=== PATIENT | female | born 1995 | race Caucasian/White ===

== ENCOUNTER 2017-04-19 01:42 | Emergency (ER) | payer OTHER ==
--- NOTE | ~2017-04-19 | CT71 ---
[facility] A Service of [facility] RADIOLOGY TEXT RESULTS PATIENT: MARICEL MILLER LOCATION: SED : [birth year] UNIT #: [id number] AGE: [address]: Shawn Lee MD SEX: F ORDER DR: [id number] [place] [id number] MR#: [id number] Acc #: [id number] NAME: MARICEL MILLER : 1995 SEX: F STUDY DATE/TIME: 04/19/2017 03:27 UNIT: SED ROOM: STUDY DESCRIPTION: CT Head Wo Contrast Attending Physician: Shawn Lee M.D. Ordering Physician: Shawn Lee M.D. Primary Care Physician: No Primary Care Physician MEDICAL IMAGING REPORT This report is preliminary unless electronic signature is present. EXAM Head CT 04/19 at 0327. COMPARISON 10/30/16. INDICATIONS Woke up an hour ago with weakness and shakiness and tingling in the left side of the face. TECHNIQUE Axial noncontrast images were obtained from the skull base to the vertex. This CT exam was performed with one or more of the following radiation dose reduction techniques: automatic exposure control, adjustment of mA and/or kV according to patient size, and iterative reconstruction. FINDINGS Ventricular size and configuration are normal. There is no evidence of acute infarct or hemorrhage. There are no extraaxial fluid collections. No mass lesion or mass effect is seen. There are no skull fractures. IMPRESSION Normal noncontrast head CT. Dictated by... Trevor Vu Jr., M.D. THIS IS AN ELECTRONICALLY VERIFIED REPORT Trevor Vu Jr., M.D. at 04/19/2017 9:22 PM RLK/joel [facility] A Service [facility] RADIOLOGY TEXT RESULTS PATIENT: MARICEL MILLER LOCATION: SED : [birth year] UNIT #: [id number] AGE: [address]: Shawn Lee MD SEX: F ORDER DR: TD: 04/19/2017 12:26 JOB #: [id number] MEDICAL IMAGING REPORT Page 1 of 1
[~2017-04-19 01:42] MED LIST: CELEXA20 MG PO
[2017-04-19] MEDS ORDERED: PROPRANOLOL HCL10 MG PO (02:05)
[2017-04-19] MEDS ORDERED: MOTION RELIEF25 MG PO (02:05)
[2017-04-19 03:05] LABS: BASOPHIL# 0.1 X10e3 (0-0.3); BASOPHIL% 0.6 % (0-2.5); EOSINOPHIL# 0.2 X10e3 (0-0.7); EOSINOPHIL% 2.2 % (0.0-7.0); HEMATOCRIT 38.5 % (35.0-45.0); HEMOGLOBIN 12.8 gm/dL (12.0-16.0); LYMPHOCYTE# 3.5 X10e3 (1.0-3.5); LYMPHOCYTE% 38.7 % (17.0-45.0); MEAN CELL VOLUME 84.1 FL (83-96); MEAN CORPUSCULAR HEMOGLOBIN 27.9 PG (28-34); MEAN CORPUSCULAR HGB CONC 33.1 g/dL (30-36); MEAN PLATELET VOLUME 7.4 FL (6.5-11.5); MONOCYTE# 0.5 X10e3 (0-1.0); MONOCYTE% 5.7 % (3.0-12.0); NEUTROPHIL# 4.8 X10e3 (1.5-7.1); NEUTROPHIL% 52.8 % (40-75); PLATELET COUNT 294 X10e3 (140-420); RED BLOOD COUNT 4.58 X10e (3.90-5.30); RED CELL DISTRIBUTION WIDTH 14.3 % (11.0-15.5)
[2017-04-19 03:06] LABS: DIFF IND NO
[2017-04-19 03:18] LABS: ALBUMIN SERUM 4.2 g/dL (3.5-5.0); ALKALINE PHOSPHATASE 62 U/L (32-92); ALT (SGPT) 17 U/L (10-40); AST (SGOT) 17 U/L (10-42); BILIRUBIN,TOTAL 0.4 mg/dL (0.2-2.0); BLOOD UREA NITROGEN 9 mg/dL (9-23); CALCIUM SERUM 9.2 mg/dL (8.4-10.2); CARBON DIOXIDE 26 mmol/L (22-31); CHLORIDE 100 mmol/L (100-111); CREATININE SERUM 0.6 mg/dL (0.6-1.4); GLOM FILT RATE Estimated 130.3 mL/min (>60); GLUCOSE FASTING 94 mg/dL (70-110); POTASSIUM 3.3 mmol/L (3.5-5.1); PROTEIN TOTAL SERUM 8.1 g/dL (6.0-8.3); SODIUM 135 mmol/L (135-145)
[2017-04-19 03:20] LABS: BILIRUBIN, DIRECT <0.1 mg/dL (0.0-0.2); BILIRUBIN,INDIRECT 0.3 mg/dL (0.0-0.9)
== END 2017-04-19 04:05 | disposition home or self-care (01) ==
LOC: SED 01:42
PROVIDERS: Emergency Medicine
DX: R20.2 Paresthesia of skin (principal); E87.6 Hypokalemia; F41.9 Anxiety disorder, unspecified; F17.200 Nicotine dependence, unspecified, uncomplicated
CPT/HCPCS: 70450; 80048; 80076; 84703; 85025; 96372; 99284

== ENCOUNTER 2017-04-25 19:54 | Emergency (ER) | payer OTHER ==
[~2017-04-25 19:54] MED LIST changes: +MOTION RELIEF25 MG PO; +PROPRANOLOL HCL10 MG PO
== END 2017-04-25 20:59 | disposition home or self-care (01) ==
LOC: SED 19:54
DX: L60.0 Ingrowing nail (principal); F17.210 Nicotine dependence, cigarettes, uncomplicated; Z79.899 Other long term (current) drug therapy; Z88.1 Allergy status to other antibiotic agents; Z88.8 Allergy status to other drugs, medicaments and biological substances
CPT/HCPCS: 99283

== ENCOUNTER 2017-04-27 04:21 | Emergency (ER) | payer OTHER | END 2017-04-27 05:03 | disposition home or self-care (01) | LOC: SED 04:21 | DX: R42 Dizziness and giddiness (principal); F41.9 Anxiety disorder, unspecified; F17.200 Nicotine dependence, unspecified, uncomplicated | CPT/HCPCS: 82947; 99284 ==

== ENCOUNTER 2017-05-15 02:40 | Emergency (ER) | payer OTHER ==
[~2017-05-15] VITALS: Ht 167.6 cm; Wt 147.4 kg
== END 2017-05-15 04:12 | disposition left against medical advice (07) ==
LOC: SED 02:40
DX: Z53.21 Procedure and treatment not carried out due to patient leaving prior to being seen by health care provider (principal)

== ENCOUNTER 2017-05-16 12:44 | Emergency (ER) | payer OTHER ==
[~2017-05-16] VITALS: Ht 167.6 cm; Wt 127.0 kg
== END 2017-05-16 14:10 | disposition home or self-care (01) ==
LOC: SED 12:44
DX: R20.9 Unspecified disturbances of skin sensation (principal); R51 Headache; F17.210 Nicotine dependence, cigarettes, uncomplicated
CPT/HCPCS: 99284